=== PATIENT | female | born 1965 | race Hispanic/Latino ===

== ENCOUNTER 2019-12-25 10:24 | Observation (INO) | payer OTHER ==
[2019-12-25 10:58] LABS: #Basophils 0.1 thou/uL (0.0-0.2); #Eosinphils 0.3 thou/uL (0.0-0.7); #Monocytes 0.7 thou/uL (0.11-0.59); #Neutrophils 3.9 thou/uL (1.40-6.50); %Basophils 0.9 % (0.0-1.0); %Eosinophils 4.1 % (0.0-10.0); %Lymphocytes 37.4 % (21.0-51.0); %Monocytes 8.8 % (0.0-10.0); %Neutrophils 48.8 % (42.0-75.0); Hemoglobin 15.1 g/dL (12.0-16.0); Mean Corpuscular Hemoglobin 32.1 pg (27.0-31.0); Mean Corpuscular Volume 91.5 fL (78.0-98.0); Mean Platelet Volume 7.3 fL (7.4-10.4); Platelet Count 289 thou/uL (130-400); RBC Distribution Width 11.6 % (11.5-14.5); Red Blood Cell (RBC) Count 4.71 mill/uL (4.20-5.40)
[2019-12-25 11:07] LABS: ALT (SGPT) 15 U/L (8-55); AST (SGOT) 15 U/L (5-34); Albumin 4.2 g/dL (3.5-5.0); Alkaline Phosphatase 101 U/L (40-110); Anion Gap 15 mmol/L (10-20); BUN (Urea Nitrogen) 12 mg/dL (9.8-20.1); Bilirubin, Total 0.4 mg/dL (0.2-1.2); CK (CPK) 72 U/L (29-168); Calc. Creatinine Clearance 0 mL/min (70-130); Calcium 9.1 mg/dL (7.8-10.44); Carbon Dioxide 21 mmol/L (22-29); Chloride 107 mmol/L (98-107); Estimated GFR-MDRD 81; Globulin 3.2 g/dL (2.4-3.5); Glucose 127 mg/dL (70-105); Lipase 6 U/L (8-78); Protein, Total 7.4 g/dL (6.0-8.3); Sodium 139 mmol/L (136-145)
--- NOTE | 2019-12-25 11:12 | RAD ---
EXAM: CHEST ONE VIEW HISTORY: Chest pain and shortness of breath which started this morning. COMPARISON: None FINDINGS: The cardiac silhouette and pulmonary vasculature is within normal limits. The lungs are clear. The os seous structures are intact. IMPRESSION: No acute cardiopulmonary process.
[2019-12-25] MEDS ORDERED: Aspirin Chewable 81 MG TAB ONE (11:46)
[2019-12-25] MEDS ORDERED: Nitroglycerin 0.4 MG TAB 1 EACH ONE (11:46)
[2019-12-25] MEDS ORDERED: Nitroglycerin 0.4 MG TAB (25 Tab Bottle) PO PRN (13:50)
[2019-12-25] MEDS ORDERED: Acetaminophen 325 MG TAB PO PRN (13:55)
--- NOTE | 2019-12-25 14:54 | HP ---
PRIMARY CARE PHYSICIAN: Kalee Byers MD CHIEF COMPLAINT: Chest pain. HISTORY OF PRESENT ILLNESS: The patient is a 54-year-old female with past medical history significant for heart murmur (since childhood) and hypothyroidism, who presents to the ER for the above complaint. The patient reports that at approximately 8:30 this morning while sitting on the sofa, she developed sudden onset of chest pain. The chest pain is located at left side and it radiates to her left neck and arm, exacerbated and relieved by nothing. She also reports some associated shortness of breath, nausea, and lightheadedness. She denies any abdominal pain, vomiting, or diarrhea. She denies any recent illness. Denies any fever or chills. She has no past medical history for COPD or asthma. No past medical history for DVT or PE. She is ambulatory. She denies any recent or history of illicit drug use. For the above reason, the patient had her family member drive her to the ER. In the ER, vital signs were stable, heart rate of 88, the patient was tachypneic at 28 respirations per minute, she was 99% on room air. EKG was normal sinus rhythm, no ST elevations. Initial troponin was 0.14. Chest x-ray was negative. Her lipase was 6 and her LFTs were unremarkable. She was actually given a full dose aspirin. ALLERGIES: TO PENICILLIN. HOME MEDICATIONS: There are no home medications. PAST MEDICAL HISTORY: 1. Childhood heart murmur. 2. Depression. 3. Hypothyroidism, which is untreated medically for the past 7 years. PAST SURGICAL HISTORY: 1. Partial hysterectomy. 2. Left breast biopsy. SOCIAL HISTORY: The patient lives in [place] with her family. She denies any history of smoking, alcohol intake, or illicit drug use. She is ambulatory. She is a [id number] grandmother. FAMILY HISTORY: Noncontributory for any cardiac history, noncontributory for any pulmonary history, noncontributory for CVA. REVIEW OF SYSTEMS: All other review of systems are negative unless otherwise noted in the HPI. PHYSICAL EXAMINATION: VITAL SIGNS: Temperature 98.3, blood pressure 132/44, heart rate 88, respirations 28, SpO2 of 99% on room air. Pain 6/10. CONSTITUTIONAL: The patient is alert and oriented to person, place, and time. In no acute distress. Nontoxic appearing. EYES: PERRLA. Extraocular muscles intact. Sclerae nonicteric. ENT: Nares patent bilaterally. Oropharynx is clear. Uvula midline. Moist mucous membranes. NECK: Neck is supple. Trachea is midline. No JVD. CARDIOVASCULAR: Regular rate and rhythm. S1 and S2 appreciated. No murmurs, rubs or gallops appreciated. RESPIRATORY/CHEST: Respirations are even and unlabored. Clear to auscultation. No rhonchi, wheezes, or rales. ABDOMEN: Abdomen is soft, nontender, and nondistended. No guarding or rigidity. No abdominal bruit auscultated. UPPER EXTREMITIES: Bilateral upper extremities, full range of motion. No swelling or erythema. Palpable radial and ulnar pulses. Brisk cap refill. LOWER EXTREMITIES: Lower extremities, full range of motion. Maybe trace edema to bilateral lower extremities. Palpable pedal pulses. Brisk cap refill. BACK: No CVA tenderness. No central spine tenderness. NEURO: The patient is alert, oriented to person, place, and time. GCS of 15. Follows commands. LABORATORY AND DIAGNOSTIC DATA: EKG was normal sinus rhythm. Troponin was 0.14. Chest x-ray was negative. Sodium was 139, potassium 4.0, chloride 107, carbon dioxide 21, BUN 12, creatinine 0.75, glucose was 127, calcium 9.1, AST 15, ALT 15, alkaline phosphatase 101, total bilirubin 0.4. WBCs 8, hemoglobin 15.1, hematocrit 43.1, and platelets were 289. IMPRESSION AND PLAN: 1. Chest pain. We will admit the patient to the telemetry floor, observation status. Expected length of stay less than 2 midnights. The patient's HEART score is 3, low risk. Her Wells score is 0, low risk. EKG was normal sinus rhythm, no ST elevations. Initial troponin was negative. Chest x-ray was negative. We will continue aspirin and sublingual nitroglycerin p.r.n. We will check a TSH, magnesium, fasting lipid, and BNP. We will trend the troponins. We will order nuclear med stress test and echocardiogram. 2. Near syncope. The patient reports multiple bouts of near syncope over the last several months. Her grandmother had a history of an aneurysm and she is very worried that she has this. I explained that it is not hereditary. Again, EKG was normal sinus rhythm, no ST elevations. On physical exam, no cardiac murmur appreciated. We will order a carotid ultrasound. We will order orthostatic vital signs. We will give some IV fluids. 3. History childhood heart murmur, will get echocardiogram. 4. Depression. The patient takes no home medications for depression. She denies any suicidal or homicidal ideation. 5. Hypothyroidism. The patient reports that she was taking [place] Thyroid 180 mg, but had stopped over 7 years ago per her doctor. We will order a TSH level. 6. SCDs for DVT prophylaxis. We will consult Walking Program. We will start Pepcid for GI prophylaxis. The patient is a full code and POA is Mike Sheets, her , his number is [phone]. 7. Discussed the case with Dr. Murray. Job ID: [id number] MTDD
[2019-12-25 14:57] LABS: Troponin I Less than 0.010 ng/mL (< 0.028)
[2019-12-25] MEDS: Sodium Chloride 0.9% 1,000 ML IV SCH (16:50)
[2019-12-25 17:11] LABS: Troponin I Less than 0.010 ng/mL (< 0.028)
[2019-12-25 17:35] VITALS: BMI 32.8
[2019-12-25] MEDS: Famotidine 20 MG TAB PO SCH (19:44)
[2019-12-26 04:48] LABS: #Basophils 0.1 thou/uL (0.0-0.2); #Eosinphils 0.4 thou/uL (0.0-0.7); #Lymphocytes 2.7 thou/uL (1.20-3.40); #Monocytes 0.7 thou/uL (0.11-0.59); #Neutrophils 3.5 thou/uL (1.40-6.50); %Basophils 1.1 % (0.0-1.0); %Lymphocytes 37.1 % (21.0-51.0); %Neutrophils 47.8 % (42.0-75.0); Mean Corpuscular HGB CONC 32.5 g/dL (32.0-36.0); Mean Corpuscular Hemoglobin 30.3 pg (27.0-31.0); Mean Corpuscular Volume 93.1 fL (78.0-98.0); Mean Platelet Volume 7.2 fL (7.4-10.4); Platelet Count 288 thou/uL (130-400); RBC Distribution Width 11.7 % (11.5-14.5); Red Blood Cell (RBC) Count 4.61 mill/uL (4.20-5.40); White Blood Cell (WBC) Count 7.3 thou/uL (4.8-10.8)
[2019-12-26 05:05] LABS: Anion Gap 12 mmol/L (10-20); BUN (Urea Nitrogen) 10 mg/dL (9.8-20.1); Calc. Creatinine Clearance 108 mL/min (70-130); Calcium 8.7 mg/dL (7.8-10.44); Carbon Dioxide 25 mmol/L (22-29); Cardiac Risk 6.5 (Less than 4.5); Chloride 108 mmol/L (98-107); Cholesterol 196 mg/dl (< 200 Desired); Estimated GFR-MDRD 80; Glucose 95 mg/dL (70-105); HDL Cholesterol 30 mg/dL (>60 Neg Risk); LDL Cholesterol, Calculated 118 mg/dL; Potassium 4.5 mmol/L (3.5-5.1); Sodium 140 mmol/L (136-145); Triglycerides 238 mg/dL (Less than 150)
[2019-12-26] MEDS: Sodium Chloride 0.9% 1,000 ML IV SCH (05:52)
--- NOTE | 2019-12-26 07:46 | ULT ---
CAROTID ARTERIAL DOPPLER ULTRASOUND: DATE: 12/25/2019 COMPARISON: None. HISTORY: Syncope. TECHNIQUE: Multiplanar Ward scale sonographic imaging of the arterial structures of the neck obtained with color Doppler, including color flow and spectral analysis. FINDINGS: Antegrade blood flow and normal arterial waveforms are seen within the carotid and vertebral system b ilaterally. VESSEL PSV (cm/sec) Right CCA 90 Right ICA 70 Right ECA 69 Left CCA 79 Left ICA 73 Left ECA 97 ICA/CCA ratio is 0.8 on the right and 0.9on the left. IMPRESSION: No hemodynamically significant stenosis on the basis of sonographic velocity criteria. POS: [facility]
[2019-12-26] MEDS: Famotidine 20 MG TAB PO SCH (08:37)
[2019-12-26] MEDS ORDERED: Aspirin 325 mg Enteric Coated Tablet PO SCH (09:00)
[2019-12-26] MEDS ORDERED: Prevnar 13-Val Conj/PF 0.5 ML SYRINGE IM ONE (09:00)
[2019-12-26] MEDS ORDERED: ADENOSINE 60 MG/20 ML VIAL ONE (09:58)
[2019-12-26 12:41] VITALS: TEMP 97.9
--- NOTE | 2019-12-26 14:05 | NM ---
MYOCARDIAL PERFUSION SCAN WITH SPECT IMAGIN12/26/19 HISTORY: Chest pain. Examination is performed using 32.8 millicuries 99m technetium Sestamibi on the stress, 9.0 millicuri es on the resting images. This shows a fairly normal distribution of the radiopharmaceutical without signs for ischemia or scar. Wall motion: There is symmetric contractility to the ventricle. Left ventricular ejection fraction: Calculated left ventricular ejection fraction of 68%. IMPRESSION: Unremarkable myocardial perfusion scan. POS: [facility]
[2019-12-26 16:38] VITALS: BP 108/52
--- NOTE | 2019-12-27 07:41 | DIS ---
DATE OF ADMISSION: 12/25/2019 DATE OF DISCHARGE: 12/26/2019 HOSPITAL COURSE: Ms. Sheets is a 54-year-old female with no medical history, who presented with noncardiac chest pain. The patient was diagnosed with noncardiac chest pain based on her presentation, negative nuclear stress test, and negative lab tests. Echocardiography did not show findings consistent with valvulopathy that may explain her chronic presyncopal episodes. On the day of discharge, the patient was hemodynamically stable and chest pain has resolved. She was educated regarding noncardiac chest pain and treatment. On the day of discharge, she was hemodynamically stable with no complaints. PHYSICAL EXAMINATION: VITAL SIGNS: Blood pressure 108/52, temperature 97.9 Fahrenheit, pulse 72, respiratory rate 16, and oxygen saturation 97% on room air. GENERAL: No apparent distress. CARDIAC: Regular rate and rhythm. No murmurs, gallops, or rubs. LUNGS: Clear to auscultation bilaterally. No wheezing, rales, or rhonchi. ABDOMINAL EXAM: Soft, nontender, nondistended. Normal bowel sounds. EXTREMITIES: No edema. PSYCHIATRIC: Proper mood and affect. Alert and oriented x3. MEDICATION LIST: The patient was discharged on no medications. Prior to discharge, ASCVD risk was low, so the patient did not require initiation of statin therapy. She was discharged with followup appointments with her primary care physician. Job ID: [id number]
== END 2019-12-26 18:26 | disposition home or self-care (01) ==
LOC: ERS 10:24 → ERHOLD 12:58 → 2NO 16:30
PROVIDERS: ADMIT Internal Medicine; ATTEND Internal Medicine
DX: R07.89 Other chest pain (principal); R55 Syncope and collapse; R01.1 Cardiac murmur, unspecified; E03.9 Hypothyroidism, unspecified; F32.9 Major depressive disorder, single episode, unspecified; Z88.0 Allergy status to penicillin
CPT/HCPCS: 36415; 71045; 78452; 80048; 80053; 80061; 82550; 83690; 83735; 83880; 84443; 84484; 85025; 90471; 90670; 93005; 93017; 93306; 93880; 94760; 96360; 96361; A9500; G0009; G0378; J0153

== ENCOUNTER 2021-01-09 16:04 | Outpatient (CLI) | payer OTHER | END 2021-01-09 16:05 | disposition home or self-care (01) | LOC: BICRAD 16:04 | PROVIDERS: ATTEND Family Medicine | DX: R06.89 Other abnormalities of breathing (principal) | CPT/HCPCS: 71046 ==

== ENCOUNTER 2021-08-28 10:06 | Outpatient (CLI) | payer OTHER | END 2021-08-28 10:07 | disposition home or self-care (01) | LOC: BICMAMMO 10:06 | PROVIDERS: ATTEND Family Medicine | DX: Z12.31 Encounter for screening mammogram for malignant neoplasm of breast (principal) | CPT/HCPCS: 77063; 77067 ==

== ENCOUNTER 2022-04-30 08:05 | Outpatient (CLI) | payer OTHER | END 2022-04-30 08:06 | disposition home or self-care (01) | LOC: BICMAMMO 08:05 | PROVIDERS: ATTEND Family Medicine | DX: N64.4 Mastodynia (principal) | CPT/HCPCS: G0279 ==